=== PATIENT | female | born 1970 | race Caucasian/White ===

== ENCOUNTER → 2019-06-02 | Outpatient (CLI) | payer OTHER ==
[2019-06-03 00:07] LABS: ESTRADIOL LEVEL 124.7 pg/mL (.); FSH 22.4 mIU/mL (.)
== END | disposition home or self-care (01) ==
LOC: LAB 15:11
PROVIDERS: ATTEND Nurse Practitioner Women's Health
DX: R23.2 Flushing (principal)
CPT/HCPCS: 36415; 82670; 83001; 83002

== ENCOUNTER → 2021-02-09 | Outpatient (CLI) | payer OTHER ==
--- NOTE | 2021-02-17 08:40 | RAD ---
INDICATION : Routine Screening. COMPARISON: August 29, 2015 TECHNIQUE: Standard mammogram screening 3D tomosynthesis images were obtained. CAD was utilized. FINDINGS: The breasts are heterogenous density. Within the superior right breast on the MLO view centrally the re is an asymmetry identified which appears slightly increased from prior examination. This is locate d approximately 12.8 cm from the nipple when measuring on the MLO view and is located just anterior t o the pectoralis muscle. IMPRESSION: BI-RADS Category 0: Incomplete. Further imaging evaluation is warranted. Within the superior right br east on the MLO view there is an asymmetry identified which appears slightly increased from prior. Th e most likely cause is overlap of glandular tissue but recommend that the patient return for diagnost ic mammogram to further assess. If this persists on diagnostic mammograms and ultrasound would be nec essary. No worrisome left breast mass is seen. The patient was placed into the recall system with a suggested recall date for follow up imaging. Mammography is the most sensitive method for finding small breast cancers, but it does not detect the m all and is not a substitute for careful clinical examination. A negative mammogram does not negate a clinically suspicious finding and should not result in delay in biopsying a clinically suspicious abnormality. Electronically signed by: Fredrick Lr MD (02/17/2021 8:37 AM) [id number]
== END ==
LOC: MAMMO 09:31
PROVIDERS: ATTEND Obstetrics & Gynecology
DX: Z12.31 Encounter for screening mammogram for malignant neoplasm of breast (principal)
CPT/HCPCS: 77063; 77067